=== PATIENT | male | born 1990 | race Two or more races ===

== ENCOUNTER 2022-04-27 15:38 | Emergency (ER) | payer OTHER ==
[~2022-04-27] VITALS: Ht 160 cm; Wt 77.1 kg
[2022-04-27 15:43] VITALS: BP 139/90
[2022-04-27] MEDS ORDERED: AMOX-277 PO (16:04)
== END 2022-04-27 16:19 | disposition home or self-care (01) ==
LOC: ER 15:38
DX: H66.93 Otitis media, unspecified, bilateral (principal)